=== PATIENT | female | born 1995 | race Hispanic/Latino ===

== ENCOUNTER 2025-06-14 20:33 | Inpatient (IN) | payer BC ==
[2025-06-14] MEDS ORDERED: Ibuprofen 800 MG TAB PO PRN (20:53)
[2025-06-14] MEDS ORDERED: Oxytocin 30 units/NS 500 ML 500 ML IV SCH (20:53)
[2025-06-14] MEDS ORDERED: HYDROcodone/Acetaminophen 5/325 mg Tablet PO PRN ×2 (20:53)
[2025-06-14] MEDS ORDERED: Diphenoxylate HCl/Atropine Tablet PO PRN ×2 (20:53)
[2025-06-14] MEDS ORDERED: Tranexamic Acid 1,000 MG/10 ML VIAL IVP PRN (20:53)
[2025-06-14] MEDS ORDERED: Lidocaine 1% (PF) 30 ML VIAL SC PRN (20:53)
[2025-06-14] MEDS ORDERED: Methylergonovine 0.2 MG/ML VIAL IM PRN (20:53)
[2025-06-14] MEDS ORDERED: hydrALAZINE 20 MG/ML VIAL SLOW IVP PRN (20:53)
[2025-06-14] MEDS ORDERED: Carboprost 250 MCG/ML AMP IM PRN (20:53)
[2025-06-14 21:47] VITALS: BMI 43.2
[2025-06-14 22:31] LABS: Hematocrit 29.4 % (34.9-44.5); Hemoglobin 8.8 g/dL (12.0-15.5); Mean Corpuscular Hemoglobin 21.6 pg (27.0-33.0); Mean Corpuscular Volume 72.1 fL (81.6-98.3); Platelet Count 425 10x3/uL (150-450); Red Blood Cell (RBC) Count 4.08 10x6/uL (3.90-5.03); White Blood Cell (WBC) Count 15.78 10x3/uL (3.5-10.5)
[2025-06-14 23:13] LABS: Hep B Surf Ag - L&D Non-Reactive S/CO (NonReactive)
[2025-06-14 23:14] LABS: Syphilis Antibody Index 0.12 S/CO (<1.00 Non-Reactive)
[2025-06-15] MEDS: Ondansetron PF 4 MG/2 ML Vial IVP PRN (07:40)
[2025-06-15] MEDS: Acetaminophen 500 MG TAB PO PRN (07:40)
[2025-06-15] MEDS: Oxytocin 30 units/NS 500 ML 500 ML IV SCH (15:03)
[2025-06-15] MEDS: fentaNYL/Ropivacaine Epidural 100 ML ONE (23:28)
[2025-06-15] MEDS ORDERED: fentaNYL 2 mcg/Ropivacaine 0.2% Epidural 100 ML CADD EPIDURAL SCH (23:45)
[2025-06-15] MEDS ORDERED: Communication Order-Pharmacy FS SCH (23:45)
[2025-06-15] MEDS ORDERED: Acetaminophen 325 MG TAB PO PRN (23:55)
[2025-06-15] MEDS ORDERED: Ondansetron PF 4 MG/2 ML Vial IVP PRN (23:55)
[2025-06-15] MEDS ORDERED: diphenhydrAMINE 50 MG/ML VIAL IVP PRN (23:55)
[2025-06-16] MEDS ORDERED: Bicitra 30 ML UDCUP PO PRN (08:28)
[2025-06-16] MEDS ORDERED: Famotidine/PF 20 mg/2ml Vial SLOW IVP PRN (08:28)
[2025-06-16] MEDS ORDERED: Azithromycin 500 MG in Sodium Chloride 0.9% 250 ML 250 ML IVPB SCH (08:30)
[2025-06-16] MEDS ORDERED: Ondansetron PF 4 MG/2 ML Vial IVP PRN ×4 (08:43→13:10)
[2025-06-16] MEDS ORDERED: diphenhydrAMINE 50 MG/ML VIAL IVP PRN (08:43)
[2025-06-16] MEDS ORDERED: Meperidine HCl/PF 25 MG (1 mL) VIAL SLOW IVP PRN ×2 (08:43→13:10)
[2025-06-16] MEDS ORDERED: Communication Order-Pharmacy FS SCH ×3 (08:45)
[2025-06-16] MEDS ORDERED: Ketorolac Tromethamine 30 MG (1 mL) VIAL IVP SCH ×2 (08:45→13:15)
[2025-06-16] MEDS: Ketorolac Tromethamine 30 MG (1 mL) VIAL IVP PRN ×2 (12:17→17:28)
[2025-06-16] MEDS ORDERED: Lanolin Ointment 7 GM TUBE TOP PRN (12:56)
[2025-06-16] MEDS ORDERED: hydrALAZINE 20 MG/ML VIAL SLOW IVP PRN (12:56)
[2025-06-16] MEDS ORDERED: Simethicone Chewable 80 MG TAB PO PRN (12:56)
[2025-06-16] MEDS ORDERED: diphenhydrAMINE 25 MG CAP PO PRN (12:56)
[2025-06-16] MEDS ORDERED: Bisacodyl 10 MG SUPP PR PRN (12:56)
[2025-06-16] MEDS ORDERED: HYDROcodone/Acetaminophen 5/325 mg Tablet PO PRN ×3 (12:56→20:45)
[2025-06-16] MEDS: Dexamethasone 10 MG/ML VIAL ONE (13:04)
[2025-06-16] MEDS: CEFAZOLIN 2 GM VIAL ONE (13:04)
[2025-06-16] MEDS: Azithromycin 500 MG VIAL ONE (13:04)
[2025-06-16] MEDS: Ondansetron PF 4 MG/2 ML Vial ONE (13:04)
[2025-06-16] MEDS: Tranexamic Acid 1,000 MG/10 ML VIAL ONE (13:05)
[2025-06-16] MEDS: PHENYLEPHRINE-NS 100 MCG/ML 10 ML SYRINGE ONE (13:05)
[2025-06-16] MEDS: Oxytocin 10 UNITS/ML VIAL ONE (13:05)
[2025-06-16] MEDS ORDERED: Ketorolac Tromethamine 30 MG (1 mL) VIAL IVP PRN (13:10)
[2025-06-16] MEDS: Boostrix 0.5 ML (Tdap) VIAL (>/=7 yrs of age) IM ONE (13:39)
[2025-06-16] MEDS: diphenhydrAMINE 50 MG/ML VIAL IVP PRN (13:40)
[2025-06-17] MEDS: HYDROcodone/Acetaminophen 5/325 mg Tablet PO PRN (03:56)
[2025-06-17 06:06] LABS: Hematocrit 26.0 % (34.9-44.5); Hemoglobin 7.7 g/dL (12.0-15.5); Mean Corpuscular Hemoglobin 21.3 pg (27.0-33.0); Mean Corpuscular Volume 71.8 fL (81.6-98.3); Platelet Count 340 10x3/uL (150-450); Red Blood Cell (RBC) Count 3.62 10x6/uL (3.90-5.03); White Blood Cell (WBC) Count 26.10 10x3/uL (3.5-10.5)
[2025-06-17] MEDS ORDERED: Ferrous Sulfate 325 MG TAB PO PRN (07:48)
[2025-06-17] MEDS: Ferrous Sulfate 325 MG TAB PO SCH (08:19)
[2025-06-17] MEDS: Ibuprofen 800 MG TAB PO SCH (14:21)
[2025-06-18 07:34] VITALS: BP 118/58; TEMP 97.9
== END 2025-06-18 12:25 | disposition home or self-care (01) | DRG 788 ==
LOC: CSHLD 20:33 → CSHPED 06-16 12:54
PROVIDERS: ADMIT Obstetrics & Gynecology; ATTEND Obstetrics & Gynecology
PROC: 10D00Z1 Extraction of Products of Conception, Low, Open Approach (ICD-10-PCS; principal; 2025-06-16)
DX: O99.214 Obesity complicating childbirth (principal); Z3A.39 39 weeks gestation of pregnancy; Z37.0 Single live birth; Z79.899 Other long term (current) drug therapy; E66.1 Drug-induced obesity; O33.9 Maternal care for disproportion, unspecified; O62.1 Secondary uterine inertia
CPT/HCPCS: 36415; 51702; 85027; 86780; 86850; 86900; 86901; 87340; J1100; J1200; J1885; J2274; J2405; J2550; J2590; J3010